=== PATIENT | male | born 1975 | race Caucasian/White ===

== ENCOUNTER 2018-02-27 09:45 | Emergency (ER) | payer BC ==
[2018-02-27 10:06] VITALS: BP 129/81
--- NOTE | 2018-02-28 08:39 | UC ---
- Progress Note Progress Note: monospot negative, no change eva 02/28/18 Discharge - Sign-Out/Discharge Documenting (check all that apply): Post-Discharge Follow Up - Discharge Plan Condition: Stable Disposition: HOME Prescriptions: Azithromyxin JOSE (NF) [Z-Jose (Zithromax) 250 mg tabs #6] 2 tab PO .TODAY, THEN 1 DAILY #6 tab Triamcinolone DENTAL PASTE(NF) 1 applic MT TID PRN #1 tube PRN Reason: Pain Patient Education Materials: Pharyngitis (ED), Canker Sores (ED) Referrals: No Primary Care Phys,NOPCP [Primary Care Provider] - Additional Instructions: Follow up with your primary care physician in the next 2 weeks. Seek medical attention for worse or new problems. - Billing Disposition and Condition Condition: STABLE Disposition: HOME
--- NOTE | 2018-04-03 09:23 | UC ---
Mark Perez Stephanie, scribed for Francisca Craig MD on 02/27/18 at 1021 . Throat Pain/Nasal Michael HPI - HPI Summary HPI Summary: The pt is a 42 y/o M presenting to with c/o sore throat that began on . The pt states his symptoms improved on 02/24/19 and then worsened 02/25/18. Symptoms include sore on lip, headache and diaphoresis. - History of Current Complaint Chief Complaint: UCGeneralIllness Stated Complaint: THROAT PAIN Time Seen by Provider: 02/27/18 10:08 Hx Obtained From: Patient Onset/Duration: Gradual Onset, Lasting Weeks, Still Present Severity: Moderate Pain Intensity: 6 Pain Scale Used: 0-10 Numeric Associated Signs & Symptoms: Positive: Other - sore on lip, headache and diaphoresis. Negative: Fever - Allergies/Home Medications Allergies/Adverse Reactions: Allergies Allergy/AdvReac Type Severity Reaction Status Date / Time No Known Allergies Allergy Verified 02/27/18 10:01 Home Medications: Home Medications Amphetamine MIXED SALTS TAB* [Adderall TAB*] 0.5 tab PO DAILY 02/27/18 [History Confirmed 02/27/18] D-Methorphan/PE/Acetaminophen [Vicks Dayquil Liquid] 30 ml PO Q6HR PRN 02/27/18 [History Confirmed 02/27/18] PMH/Surg Hx/FS Hx/Imm Hx Previously Healthy: Yes - The pt denies any past medical hx. - Surgical History Surgical History: None - Family History Known Family History: Negative: Renal Disease - Social History Occupation: Employed Full-time Lives: With Family Alcohol Use: Weekly Substance Use Type: None Smoking Status (MU): Never Smoked Tobacco Have You Smoked in the Last Year: No Review of Systems Constitutional: Negative Skin: Other - diaphoresis, sore on lip Eyes: Negative ENT: Sore Throat Respiratory: Negative Cardiovascular: Negative Gastrointestinal: Negative Genitourinary: Negative Motor: Negative Neurovascular: Negative Musculoskeletal: Negative Neurological: Headache Psychological: Negative All Other Systems Reviewed And Are Negative: Yes Physical Exam - Summary Physical Exam Summary: Appearance: Well-Nourished Eye Exam: Normal ENT Exam:TM dark marcus and retracted bilaterally, L TM darker than R. posterior pharynx red, uvula midline. Neck: No adenopathy appreciated Respiratory Exam: Normal, no dyspnea, no tachypnea, normal respiratory rate, Chest non-tender, Lungs clear, Normal breath sounds, No respiratory distress, No accessory muscle use Cardiovascular Exam:Normal, Heart rate regular, good general skin color, good capillary refill, RRR, No Murmur, Pulses Normal - sitting up. heart rate correlates w left radial pulse, Brisk Capillary Refill Abdominal Exam: Normal Abdomen Description: Nontender, No Organomegaly, Soft Bowel Sounds: Present Musculoskeletal Exam: Normal Musculoskeletal: Strength Intact Neurological Exam: Normal: nonfocal, grossly intact Psychological Exam: Normal: conversing easily and appropriately Skin Exam: no visible or reported rash, Apthous ulcer in R lower lip Triage Information Reviewed: Yes Appearance: Well-Appearing, Well-Nourished Vital Signs: Initial Vital Signs Temp 98.4 F 02/27/18 10:03 Pulse 94 02/27/18 10:03 Resp 16 02/27/18 10:03 BP 129/81 02/27/18 10:03 Pulse Ox 100 02/27/18 10:03 Vital Signs Reviewed: Yes Throat Pain/Nasal Course/Dx - Course Course Of Treatment: URI with sore throat sx; however, c/n exclude atypical bacterial. Ulcer lip, d/w check for HSV IG/IG, will d/w pcp, declines at this time. Rx as below. Questions as posed answered to the best of my ability. - Differential Dx/Diagnosis Provider Diagnoses: Pharyngitis. Apthous ulcer Discharge - Sign-Out/Discharge Documenting (check all that apply): Patient Departure - Discharge Plan Condition: Stable Disposition: HOME Prescriptions: Azithromyxin [place] (NF) [Z-Hamilton (Zithromax) 250 mg tabs #6] 2 tab PO .TODAY, THEN 1 DAILY #6 tab Triamcinolone DENTAL PASTE(NF) 1 applic MT TID PRN #1 tube PRN Reason: Pain Patient Education Materials: Pharyngitis (ED), Canker Sores (ED) Referrals: No Primary Care Phys,NOPCP [Primary Care Provider] - Additional Instructions: Follow up with your primary care physician in the next 2 weeks. Seek medical attention for worse or new problems. - Billing Disposition and Condition Condition: STABLE Disposition: Home The documentation as recorded by the Mark thomason Stephanie accurately reflects the service I personally performed and the decisions made by me, Francisca Craig MD.
== END 2018-02-27 11:07 | disposition home or self-care (01) ==
LOC: UCEAST 09:45
DX: J02.9 Acute pharyngitis, unspecified (principal); K12.0 Recurrent oral aphthae; R51 Headache; R61 Generalized hyperhidrosis
CPT/HCPCS: 36415; 86308; 87651; 99212; G0463